=== PATIENT | male | born 1955 | race Caucasian/White ===

== ENCOUNTER 2016-11-14 07:18 | Day surgery (SDC) | payer OTHER ==
[~2016-11-14 07:18] MED LIST: LACTATED RINGERS 1,000 ML IV ONE
[2016-11-14] MEDS ORDERED: fentaNYL 100 MCG/2 ML VIAL IVP ONE (08:25)
[2016-11-14] MEDS ORDERED: MIDAZOLAM 2 MG/2 ML VIAL IVP ONE (08:25)
[2016-11-14 09:13] VITALS: BP 118/69
== END 2016-11-14 07:19 | disposition home or self-care (01) ==
LOC: SDS 07:18
PROVIDERS: ATTEND Internal Medicine
PROC: 0DJD8ZZ Inspection of Lower Intestinal Tract, Via Natural or Artificial Opening Endoscopic (ICD-10-PCS; principal; 2016-11-14 08:30)
DX: Z12.11 Encounter for screening for malignant neoplasm of colon (principal); K57.30 Diverticulosis of large intestine without perforation or abscess without bleeding; K64.0 First degree hemorrhoids
CPT/HCPCS: 45378; J7120

== ENCOUNTER 2016-12-09 01:38 | Day surgery (SDC) | payer OTHER ==
--- NOTE | 2016-12-09 01:46 | ED Physician Documentation ---
PD HPI ABD PAIN - Stated complaint Stated Complaint: ABD PX - History obtained from History obtained from: Patient - History of Present Illness Timing - onset: Yesterday Timing - duration: Hours (12) Timing - details: Gradual onset Pain level now: 4 Quality: Pain Location: RLQ Radiation: No: Chest, , Lower back, Left flank, Left shoulder, Right flank, Right shoulder, Upper back Improved by: Laying still Worsened by: Moving, Palpation Associated symptoms: No: Fever, Nausea, Vomiting, Diarrhea, Constipation Similar symptoms before: Has not had sx before Recently seen: Not recently seen Review of Systems Constitutional: denies: Fever, Chills, Sweats Eyes: reports: Reviewed and negative Ears: reports: Reviewed and negative Nose: reports: Reviewed and negative Throat: reports: Reviewed and negative Cardiac: reports: Reviewed and negative Respiratory: reports: Reviewed and negative GI: reports: Abdominal Pain. denies: Nausea, Vomiting : denies: Dysuria, Frequency Skin: reports: Reviewed and negative Musculoskeletal: reports: Reviewed and negative Neurologic: reports: Reviewed and negative PD PAST MEDICAL HISTORY - Past Medical History Cardiovascular: None Respiratory: None Endocrine/Autoimmune: HyPOthyroidism GI: GERD : None HEENT: None Psych: None Musculoskeletal: None Derm: None - Past Surgical History Past Surgical History: Yes Ortho: Other - Present Medications Home Medications: Ambulatory Orders Medication Instructions Recorded Confirmed Levothyroxine [Synthroid] 1 tab DAILY 11/09/16 12/09/16 Omeprazole [PriLOSEC] 20 mg PO DAILY 11/09/16 12/09/16 - Allergies Allergies/Adverse Reactions: Allergies Allergy/AdvReac Type Severity Reaction Status Date / Time metoclopramide HCl * AdvReac Severe Unknown Verified 12/09/16 01:55 [From Reglan] ondansetron HCl * AdvReac Severe Unknown Verified 12/09/16 01:55 [From Zofran (as hydrochloride)] prochlorperazine AdvReac Severe Unknown Verified 12/09/16 01:55 [From Compazine] prochlorperazine edisylate * AdvReac Severe Unknown Verified 12/09/16 01:55 [From Compazine] prochlorperazine maleate * AdvReac Severe Unknown Verified 12/09/16 01:55 [From Compazine] - Living Situation Living Arrangement: reports: At home PD ED PE NORMAL - Vitals Vital signs reviewed: Yes - General General: Alert and oriented X 3, No acute distress, Well developed/nourished - HEENT HEENT: Moist mucous membranes - Neck Neck: Supple, no meningeal sign - Cardiac Cardiac: RRR, No murmur - Respiratory Respiratory: No respiratory distress, Clear bilaterally - Abdomen Abdomen: Soft, Non distended - Back Back: No CVA TTP - Derm Derm: Normal color, Warm and dry, No rash - Extremities Extremities: No edema PD ED PE EXPANDED - Abdomen Abdomen: Tender to palpation, Rebound, RLQ Results - Vitals Vitals: Vital Signs - 24 hr 12/09/16 12/09/16 12/09/16 01:46 02:43 03:33 Temperature 36.8 C Heart Rate 109 H 91 87 Respiratory 16 14 14 Rate Blood Pressure 140/78 H 135/81 H 139/75 H O2 Saturation 97 93 96 12/09/16 05:02 Temperature Heart Rate 89 Respiratory 14 Rate Blood Pressure 114/60 O2 Saturation 97 Oxygen O2 Source Room air - Labs Labs: Laboratory Tests 12/09/16 12/09/16 02:10 02:10 WBC 12.2 H RBC 4.64 L Hgb 14.8 Hct 41.8 L MCV 90.1 MCH 32.0 H MCHC 35.6 RDW 11.9 L Plt Count 215 MPV 7.1 L Neut # 9.4 H Lymph # 1.7 [place] # 0.9 Eos # 0.2 Baso # 0.1 Absolute Nucleated RBC 0.00 Nucleated RBCs 0.0 Sodium 138 Potassium 3.6 Chloride 104 Carbon Dioxide 25 Anion Gap 9.0 BUN 14 Creatinine 1.1 Estimated GFR (MDRD) 69 L Glucose 138 H Calcium 8.7 Total Bilirubin 0.8 AST 21 ALT 24 Alkaline Phosphatase 59 Total Protein 7.1 Albumin 4.1 Globulin 3.0 Albumin/Globulin Ratio 1.4 Lipase 23 PD MEDICAL DECISION MAKING - ED course Complexity details: reviewed results, re-evaluated patient, considered differential, d/w patient ED course: CT scan broken. Dr. Shaffer came to ED, evaluated patient, and will admit to perform appendectomy in AM Departure - Departure Disposition: ED Place in Observation Clinical Impression: Appendicitis Qualifiers: Appendicitis type: acute appendicitis Acute appendicitis type: unspecified acute appendicitis type Qualified Code(s): K35.80 - Unspecified acute appendicitis Condition: Stable Discharge Date/Time: 12/09/16 06:40
[2016-12-09] MEDS ORDERED: MORPHINE 2 MG/ML SYRINGE IVP STA ×2 (02:03→03:20)
[2016-12-09] MEDS ORDERED: SODIUM CHLORIDE 0.9% 1,000 ML IV STA (02:03)
[2016-12-09] MEDS ORDERED: MORPHINE 2 MG/ML SYRINGE ONE ×2 (02:09→03:24)
[2016-12-09 02:13] LABS: BASOPHILS # (AUTO) 0.1 10^3/uL (0.0-0.1); BASOPHILS % (AUTO) 0.8 %; EOSINOPHILS # (AUTO) 0.2 10^3/uL (0.0-0.7); EOSINOPHILS % (AUTO) 1.6 %; HCT - HEMATOCRIT 41.8 % (42.0-52.0); HGB - HEMOGLOBIN 14.8 g/dL (14.0-18.0); LYMPHOCYTES # (AUTO) 1.7 10^3/uL (1.5-3.5); LYMPHOCYTES % (AUTO) 13.5 %; MEAN CORPUSCULAR HGB CONC 35.6 g/dL (32.0-36.0); MEAN CORPUSCULAR VOLUME 90.1 fL (80.0-94.0); MEAN PLATELET VOLUME 7.1 fL (7.4-11.4); MONOCYTES # (AUTO) 0.9 10^3/uL (0.0-1.0); MONOCYTES % (AUTO) 7.5 %; NEUTROPHILS # (AUTO) 9.4 10^3/uL (1.5-6.6); NEUTROPHILS % (AUTO) 76.6 %; RED BLOOD COUNT 4.64 10^6/uL (4.70-6.10); RED CELL DISTRIBUTION WIDTH 11.9 % (12.0-15.0); UNCORRECTED WHITE BLOOD COUNT 12.2 x10^3/uL; WHITE BLOOD COUNT 12.2 x10^3/uL (4.8-10.8)
[2016-12-09 02:24] LABS: ALBUMIN/GLOBULIN RATIO 1.4 (1.0-2.2); BILIRUBIN,TOTAL 0.8 mg/dL (0.2-1.0); CALCIUM 8.7 mg/dL (8.5-10.3); CREATININE 1.1 mg/dL (0.6-1.2); POTASSIUM 3.6 mmol/L (3.5-5.0); TOTAL PROTEIN 7.1 g/dL (6.7-8.2)
[2016-12-09] MEDS ORDERED: SODIUM CHLORIDE 0.9% 1,000 ML IV ONE (03:24)
[2016-12-09] MEDS ORDERED: SODIUM CHLORIDE FLUSH 0.9% 10 ML SYRINGE IVP ONE (03:24)
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
[2016-12-09] MEDS ORDERED: ERTAPENEM 1 GM VIAL ONE (04:41)
[2016-12-09 05:03] VITALS: BP 114/60
[2016-12-09] MEDS ORDERED: SCOPOLAMINE PATCH TOP ONE (06:18)
[2016-12-09] MEDS ORDERED: SCOPOLAMINE PATCH TOP STA (06:27)
[2016-12-09] MEDS ORDERED: LACTATED RINGERS 1,000 ML IV ONE ×2 (06:35→07:12)
[2016-12-09] MEDS ORDERED: NEOSTIGMINE 1 MG/1 ML 10 ML MDV IVP ONE (07:10)
[2016-12-09] MEDS ORDERED: GLYCOPYRROLATE 1 MG/5 ML VIAL IVP ONE (07:10)
[2016-12-09] MEDS ORDERED: ROCURONIUM 50 MG/5 ML VIAL IVP ONE (07:10)
[2016-12-09] MEDS ORDERED: LIDOCAINE-MPF 2% 5 ML VIAL IM ONE (07:10)
[2016-12-09] MEDS ORDERED: fentaNYL 100 MCG/2 ML VIAL IVP ONE (07:10)
[2016-12-09] MEDS ORDERED: MIDAZOLAM 2 MG/2 ML VIAL IVP ONE (07:10)
[2016-12-09] MEDS ORDERED: SUCCINYLCHOLINE 200 MG/10 ML VIAL IVP ONE (07:10)
[2016-12-09] MEDS ORDERED: PROPOFOL 200 MG/20 ML VIAL IVP ONE (07:10)
[2016-12-09] MEDS ORDERED: DEXAMETHASONE 4 MG/ML VIAL IVP ONE (07:10)
[2016-12-09] MEDS ORDERED: BUPIVACAINE 0.25%-EPI 1:200000 PF 10 ML VIAL SUBQ ONE (07:48)
--- NOTE | 2016-12-09 08:11 | OPERATIVE REPORT ---
Operative Report - General Planned Procedure: laparoscopic appendectomy Pre-Op Diagnosis: Acute appendicitis Post Op Diagnosis: Acute appendicitis - retrocecal - Procedure Note Primary Surgeon: Giselle Le MD Anesthesia Provider: Dr. Armijo/Mingo Quezada Anesthesia Technique: General ET tube Estimated Blood Loss (in cc): 20 Complications: none - Other Other Information/Narrative: Procedure: Lap Appy After informed consent was obtained, the pt was taken to the OR and GETA was induced. A benavides cath was placed and a time out was done. The abdomen was then prepped and draped in sterile fashion. 0.25% Marcaine with epi was injected in the skin and subQ tissues at the umbilicus and an umbilical incision was made and carried down to the fascia with blunt dissection. The fascia was grasped between 2 Coleen clamps and incised with a scalpel. A 0 vicryl suture was placed on either side of the fascia. The peritoneal cavity was entered and the Torres trocar inserted and secured with the balloon and sutures. The abdomen was insufflatted and the pt was placed in Trendelenburg position and rotated toward the surgeon. 5mm RLQ and 5mm LLQ trocars were placed under direct visualization after injecting local. The appendix was noted to be retrocecal and adhered to the lateral abdominal wall. It was acutely inflamed, but not perforated. dissected free with blunt dissection and the ligasure. The mesoappendix was dissected with the ligasure. The appendix was then transected at it's base with the endoGIA stapler taking a small rim of cecum. The appendix was placed in the endoCatch bag and removed from the abdomen via the umbilical trocar site. The staple line was visualized and was intact with no active bleeding or leakage. The RLQ was then copiously irrigated with saline. The RLQ and pelvis was suctioned out and the trocars removed under direct visualization. The fascia at the umbilical trocar site was closed with a [id number] 0 Vicryl suture. The skin at all the trocar sites was closed with a running 4-0 Monocryl suture. Dermabond was applied. All counts were correct at the end of the procedure. There were no immediate postop complications. The pt tolerated the procedure well and was sent to the PACU in stable condition.
[2016-12-09] MEDS ORDERED: KETOROLAC 15 MG/ML VIAL ONE (08:12)
[2016-12-09] MEDS ORDERED: oxyCOD/ACETAMIN 5 MG/325 MG TABLET PO ONE (11:40)
== END 2016-12-09 06:03 | disposition home or self-care (01) ==
LOC: ED 01:38 → SDS 06:02
PROVIDERS: ATTEND Surgery
PROC: 0DTJ4ZZ Resection of Appendix, Percutaneous Endoscopic Approach (ICD-10-PCS; principal; 2016-12-09 06:00)
DX: K35.80 Unspecified acute appendicitis (principal); K21.9 Gastro-esophageal reflux disease without esophagitis; E03.9 Hypothyroidism, unspecified
CPT/HCPCS: 36415; 44970; 80053; 83690; 85025; 96361; 96374; 96376; 99284; 99285; A9270; J1335; J3490; J7120; 88304

== ENCOUNTER 2018-04-29 17:19 | Emergency (ER) | payer MEDICAID, OTHER ==
[2018-04-29] MEDS ORDERED: IOVERSOL 320 100 ML VIAL IVP ONE ×2 (17:20→19:21)
--- NOTE | 2018-04-29 17:48 | ED Physician Documentation ---
PD HPI ABD PAIN - Stated complaint Stated Complaint: ABD PAIN - Chief complaint Chief Complaint: Abd Pain - History obtained from History obtained from: Patient - History of Present Illness Timing - onset: How many days ago (2) Timing - duration: Days (2) Pain level max: 2 Pain level now: 0 Quality: Aching Location: LLQ Improved by: Other (nothing) Worsened by: Other (nothing) Associated symptoms: Constipation, Loss of appetite, Weight loss. No: Fever, Nausea, Vomiting, Diarrhea, Dysuria, Chest pain, Dizzy, Testicular pain Similar symptoms before: Has not had sx before Recently seen: Not recently seen - Additional information Additional information: 62-year-old male with history of Diverticulosis, thyroid disease and elevated A1c but not diagnosed as diabetes, appendectomy here with complaint of fever and chills the past 2 days feeling like it is a flu bug. Now states that he is having some kind of abdominal peritoneal pain since last night. Patient stated he also has not had any BM the past 4 days. In the past week decrease in appetite so he has lost 10 pounds.Denies any trauma, travel or sick contacts. Review of Systems Ten Systems: 10 systems reviewed and negative Constitutional: reports: Fever, Chills Nose: denies: Congestion Throat: denies: Sore throat Cardiac: denies: Chest pain / pressure Respiratory: denies: Dyspnea, Cough GI: reports: Abdominal Pain, Constipation. denies: Abdominal Swelling, Nausea, Vomiting, Diarrhea, Bloody / black stool : denies: Dysuria Musculoskeletal: denies: Back pain Neurologic: denies: Generalized weakness PD PAST MEDICAL HISTORY - Past Medical History Cardiovascular: None Respiratory: None Endocrine/Autoimmune: HyPOthyroidism GI: GERD : None HEENT: None Psych: None Musculoskeletal: None Derm: None - Past Surgical History Past Surgical History: Yes Ortho: Other - Present Medications Home Medications: Ambulatory Orders Medication Instructions Recorded Confirmed Levothyroxine [Synthroid] 120 mcg DAILY 11/09/16 12/09/16 Levofloxacin [Levaquin] 500 mg PO DAILY #6 tablet 04/29/18 Metronidazole [Flagyl] 500 mg PO TID #20 tablet 04/29/18 - Allergies Allergies/Adverse Reactions: Allergies Allergy/AdvReac Type Severity Reaction Status Date / Time metoclopramide HCl * AdvReac Severe Unknown Verified 04/29/18 17:31 [From Reglan] ondansetron HCl * AdvReac Severe Unknown Verified 04/29/18 17:31 [From Zofran (as hydrochloride)] prochlorperazine AdvReac Severe Unknown Verified 04/29/18 17:31 [From Compazine] prochlorperazine edisylate * AdvReac Severe Unknown Verified 04/29/18 17:31 [From Compazine] prochlorperazine maleate * AdvReac Severe Unknown Verified 04/29/18 17:31 [From Compazine] - Social History Does the pt smoke?: No Smoking Status: Never smoker Does the pt drink ETOH?: No Does the pt have substance abuse?: No - Immunizations Immunizations are current?: Yes - POLST Patient has POLST: No PD ED PE NORMAL - Vitals Vital signs reviewed: Yes - General General: Alert and oriented X 3, No acute distress, Well developed/nourished - HEENT HEENT: EOMI, Moist mucous membranes, Pharynx benign - Neck Neck: Supple, no meningeal sign - Cardiac Cardiac: RRR, No murmur - Respiratory Respiratory: No respiratory distress, Clear bilaterally - Abdomen Abdomen: Normal bowel sounds, Soft, Non distended, Other (Left lower quadrant mild tenderness to palpation. No rigidity. No rebound nor guarding.) - Back Back: No CVA TTP, No spinal TTP - Derm Derm: Normal color, Warm and dry - Extremities Extremities: No deformity - Neuro Neuro: Alert and oriented X 3 - Psych Psych: Normal mood, Normal affect Results - Vitals Vitals: Vital Signs - 24 hr 04/29/18 17:24 Temperature 36.4 C L Heart Rate 86 Respiratory 16 Rate Blood Pressure 123/76 O2 Saturation 98 Oxygen O2 Source Room air - Labs Labs: Laboratory Tests 04/29/18 04/29/18 04/29/18 18:30 18:30 19:00 WBC 5.7 RBC 4.22 L Hgb 13.4 L Hct 39.6 L MCV 93.8 MCH 31.8 H MCHC 33.9 RDW 11.9 L Plt Count 214 MPV 7.7 Neut # (Auto) 3.8 Lymph # (Auto) 1.2 L [place] # (Auto) 0.5 Eos # (Auto) 0.2 Baso # (Auto) 0.1 Absolute Nucleated RBC 0.00 Nucleated RBC % 0.0 Sodium 142 Potassium 4.2 Chloride 105 Carbon Dioxide 29 Anion Gap 8.0 BUN 18 Creatinine 1.0 Estimated GFR (MDRD) 76 L Glucose 155 H Calcium 8.5 Total Bilirubin 0.6 AST 15 ALT 16 Alkaline Phosphatase 43 Total Protein 7.1 Albumin 3.6 Globulin 3.5 Albumin/Globulin Ratio 1.0 Lipase 38 Urine Color YELLOW Urine Clarity CLEAR Urine pH 6.5 Ur Specific [place] 1.020 Urine Protein NEGATIVE Urine Glucose (UA) NEGATIVE Urine Ketones NEGATIVE Urine Occult Blood NEGATIVE Urine Nitrite NEGATIVE Urine Bilirubin NEGATIVE Urine Urobilinogen 1 (NORMAL) Ur Leukocyte Esterase NEGATIVE Ur Microscopic Review NOT INDICATED Urine Culture Comments NOT INDICATED PD MEDICAL DECISION MAKING - ED course Complexity details: reviewed results, re-evaluated patient, considered differential (Diverticulosis, diverticulitis, perforation, bowel obstruction, constipation, UTI), d/w patient, d/w family ED course: 1905 patient wanted to talk to me prior to getting the CAT scan result. He was wondering if ultrasound will be a better test and CAT scan due to radiation. Explained to the patient that ultrasound will not flower picker diverticulitis, perforation or abdominal abscess. Patient agreed to CT scan. 2026 patient in bed in no acute distress. Inform of test results. Agreed to oral Flagyl and Levaquin for his sigmoid diverticulitis. States does not need anything for pain or nausea. Diet discussed. Departure - Departure Disposition: 01 Home, Self Care Clinical Impression: Diverticulitis of gastrointestinal tract Condition: Stable Instructions: ED Diverticulitis Prescriptions: Levofloxacin [Levaquin] 500 mg PO DAILY #6 tablet Metronidazole [Flagyl] 500 mg PO TID #20 tablet Comments: Take antibiotic as prescribed. Clear liquids today. Tomorrow advance to bland diet. Avoid foods with seeds. Eaten small amounts but frequently. Follow-up with your primary doctor for reevaluation and referral to a GI doctor For near future colonoscopy. If worse return to the emergency room.
[2018-04-29] MEDS: SODIUM CHLORIDE 0.9% 1,000 ML IV ONE (18:20)
[2018-04-29 18:36] LABS: BASOPHILS # (AUTO) 0.1 10^3/uL (0.0-0.1); BASOPHILS % (AUTO) 1.1 %; EOSINOPHILS # (AUTO) 0.2 10^3/uL (0.0-0.7); EOSINOPHILS % (AUTO) 3.7 %; HGB - HEMOGLOBIN 13.4 g/dL (14.0-18.0); LYMPHOCYTES # (AUTO) 1.2 10^3/uL (1.5-3.5); LYMPHOCYTES % (AUTO) 20.8 %; MEAN CORPUSCULAR HEMOGLOBIN 31.8 pg (27.0-31.0); MEAN CORPUSCULAR HGB CONC 33.9 g/dL (32.0-36.0); MEAN CORPUSCULAR VOLUME 93.8 fL (80.0-94.0); MEAN PLATELET VOLUME 7.7 fL (7.4-11.4); MONOCYTES # (AUTO) 0.5 10^3/uL (0.0-1.0); MONOCYTES % (AUTO) 8.1 %; NEUTROPHILS # (AUTO) 3.8 10^3/uL (1.5-6.6); NEUTROPHILS % (AUTO) 66.3 %; PLT - PLATELET COUNT 214 10^3/uL (130-450); RED BLOOD COUNT 4.22 10^6/uL (4.70-6.10); RED CELL DISTRIBUTION WIDTH 11.9 % (12.0-15.0); WHITE BLOOD COUNT 5.7 x10^3/uL (4.8-10.8)
[2018-04-29 18:49] LABS: ALBUMIN 3.6 g/dL (3.2-5.5); BILIRUBIN,TOTAL 0.6 mg/dL (0.2-1.0); CALCIUM 8.5 mg/dL (8.5-10.3); TOTAL PROTEIN 7.1 g/dL (6.7-8.2)
[2018-04-29] MEDS: IOVERSOL 320 100 ML VIAL IVP ONE (19:42)
[2018-04-29 19:52] LABS: BILIRUBIN,URINE NEGATIVE (NEGATIVE); GLUCOSE, URINE (UA) NEGATIVE (NEGATIVE); KETONES,URINE (UA) NEGATIVE (NEGATIVE); LEUKOCYTE ESTERASE, URINE NEGATIVE (NEGATIVE); NITRITE,URINE NEGATIVE (NEGATIVE); OCCULT BLOOD,URINE NEGATIVE (NEGATIVE); PH,URINE 6.5 PH (5.0-7.5); PROTEIN,URINE NEGATIVE (NEGATIVE); UROBILINOGEN,URINE 1 (NORMAL) E.U./dL (NORMAL)
[2018-04-29 19:53] LABS: CLARITY,URINE CLEAR (CLEAR)
--- NOTE | 2018-04-29 19:59 | CT Report ---
Reason: LLQ pain, anorexia, Procedure Date: 04/29/2018 Accession Number: [id number] / [id number] Procedure: CT - Abdomen/Pelvis W/ CPT Code: FULL RESULT: EXAM: CT ABDOMEN AND PELVIS EXAM DATE: 04/29/2018 07:32 PM. CLINICAL HISTORY: LLQ pain, anorexia. COMPARISONS: None. TECHNIQUE: Routine helical CT imaging was performed through the abdomen and pelvis. IV contrast: 100 cc Optiray 320 IV. Enteric contrast: No. Reconstructions: Coronal and sagittal. In accordance with CT protocol optimization, one or more of the following dose reduction techniques were utilized for this exam: automated exposure control, adjustment of mA and/or KV based on patient size, or use of iterative reconstructive technique. FINDINGS: Lung Bases: Unremarkable. Liver: Normal. No masses. Gallbladder/Bile Ducts: Unremarkable. Spleen: Normal. Pancreas: Normal. Adrenal Glands: Normal. Kidneys: Normal. No masses or hydronephrosis. Peritoneal Cavity/Bowel: There is a focal inflammatory process in the central pelvis around the diverticula arising from the superior wall of the sigmoid colon. There is fat stranding of the mesentery. There is no drainable or organized abscess. No mechanical bowel obstruction. There is increased colonic stool volume. Appendix not visualized. Pelvic Organs: Urinary bladder appears unremarkable. Vasculature: No aneurysms or other significant abnormality. Bones: No significant abnormality. Other: None. IMPRESSION: 1. Acute diverticulitis of the sigmoid colon. 2. Increased colonic stool volume. No mechanical obstruction. 3. No abscess. RADIA
[2018-04-29] MEDS: levoFLOXacin 250 MG TABLET PO STA (20:51)
[2018-04-29] MEDS: metroNIDAZOLE 250 MG TABLET PO STA (20:51)
[2018-04-29 20:55] VITALS: BP 129/86
== END 2018-04-29 21:15 | disposition home or self-care (01) ==
LOC: ED 17:19
DX: K57.32 Diverticulitis of large intestine without perforation or abscess without bleeding (principal); K21.9 Gastro-esophageal reflux disease without esophagitis; E03.9 Hypothyroidism, unspecified
CPT/HCPCS: 36415; 74177; 80053; 81003; 83690; 85025; 96360; 99283; 99284; A9270; Q9967; 81001; 87086

== ENCOUNTER 2018-05-19 08:00 | Outpatient (CLI) | payer MEDICAID, OTHER ==
[2018-05-19 12:51] LABS: BASOPHILS # (AUTO) 0.1 10^3/uL (0.0-0.1); BASOPHILS % (AUTO) 1.4 %; EOSINOPHILS # (AUTO) 0.3 10^3/uL (0.0-0.7); HGB - HEMOGLOBIN 14.9 g/dL (14.0-18.0); LYMPHOCYTES # (AUTO) 1.2 10^3/uL (1.5-3.5); LYMPHOCYTES % (AUTO) 24.1 %; MEAN CORPUSCULAR HEMOGLOBIN 32.1 pg (27.0-31.0); MEAN CORPUSCULAR HGB CONC 34.3 g/dL (32.0-36.0); MEAN CORPUSCULAR VOLUME 93.6 fL (80.0-94.0); MONOCYTES # (AUTO) 0.3 10^3/uL (0.0-1.0); MONOCYTES % (AUTO) 6.5 %; NEUTROPHILS # (AUTO) 3.2 10^3/uL (1.5-6.6); PLT - PLATELET COUNT 241 10^3/uL (130-450); RED BLOOD COUNT 4.65 10^6/uL (4.70-6.10); RED CELL DISTRIBUTION WIDTH 12.1 % (12.0-15.0)
[2018-05-19 14:10] LABS: HB2 TOTAL 15.2 g/dL; HEMOGLOBIN A1C 0.61 g/dL; HEMOGLOBIN A1C % 5.8 % (4.6-6.2)
[2018-05-19 14:24] LABS: THYROID STIMULATING HORMONE 2.8 uIU/mL (0.34-5.60)
[2018-05-19 14:32] LABS: FERRITIN 655.4 ng/mL (23.9-336.2)
[2018-05-19 14:33] LABS: % IRON SATURATION 69 % (20-50); ALBUMIN 4.4 g/dL (3.2-5.5); ALBUMIN/GLOBULIN RATIO 1.5 (1.0-2.2); ALKALINE PHOSPHATASE 50 IU/L (42-121); ALT ALANINE AMINOTRANSFERASE 32 IU/L (10-60); AST ASPARTATE AMINOTRANSFERASE 26 IU/L (10-42); BILIRUBIN,TOTAL 0.9 mg/dL (0.2-1.0); BUN - BLOOD UREA NITROGEN 17 mg/dL (6-20); CALCIUM 8.9 mg/dL (8.5-10.3); CARBON DIOXIDE - CO2 25 mmol/L (21-32); CHLORIDE 104 mmol/L (101-111); GFR - MDRD 76 (>89); GLUCOSE 125 mg/dL (70-100); IRON 177 ug/dL (45-182); SODIUM 136 mmol/L (135-145); TOTAL IRON BINDING CAPACITY 256 ug/dL (250-450); TOTAL PROTEIN 7.4 g/dL (6.7-8.2); TRANSFERRIN 183 mg/dL (180-329)
[2018-05-19 14:36] LABS: FOLATE 11.03 ng/mL (5.90 - >24.8)
== END 2018-05-19 23:59 | disposition home or self-care (01) ==
LOC: LAB.WCP 08:00
PROVIDERS: ATTEND Family Medicine
DX: E03.9 Hypothyroidism, unspecified (principal); K21.9 Gastro-esophageal reflux disease without esophagitis; R73.01 Impaired fasting glucose
CPT/HCPCS: 36415; 80053; 82607; 82728; 82746; 83036; 83540; 84443; 84466; 85025

== ENCOUNTER 2019-11-11 17:28 | Outpatient (CLI) | payer OTHER ==
[2019-11-11 17:51] LABS: CALCIUM 8.9 mg/dL (8.5-10.3); CREATININE 1.3 mg/dL (0.6-1.2)
[2019-11-11 18:00] LABS: HB2 TOTAL 16.1 g/dL; HEMOGLOBIN A1C 1.12 g/dL; HEMOGLOBIN A1C % 8.5 % (4.6-6.2)
== END 2019-11-11 17:29 | disposition home or self-care (01) ==
LOC: LAB 17:28
PROVIDERS: ATTEND Nurse Practitioner
DX: R73.01 Impaired fasting glucose (principal); E03.9 Hypothyroidism, unspecified
CPT/HCPCS: 36415; 80048; 83036; 84443

== ENCOUNTER 2020-04-18 18:23 | Outpatient (CLI) | payer OTHER | END 2020-04-18 18:24 | disposition home or self-care (01) | LOC: COV 18:23 | PROVIDERS: ATTEND Family Medicine | DX: R05 Cough (principal); M79.10 Myalgia, unspecified site; R53.83 Other fatigue; R68.83 Chills (without fever); J02.9 Acute pharyngitis, unspecified; R09.81 Nasal congestion; Z20.828 Contact with and (suspected) exposure to other viral communicable diseases ==

== ENCOUNTER 2020-07-05 14:43 | Outpatient (CLI) | payer OTHER ==
[2020-07-05] MEDS ORDERED: GADOBUTROL 10 MMOL/10 ML VIAL ONE (15:13)
[2020-07-05] MEDS ORDERED: GADOBUTROL 10 MMOL/10 ML VIAL IVP ONE (16:02)
--- NOTE | 2020-07-05 16:50 | MRI Report ---
PROCEDURE: IACS W/WO INDICATIONS: SENSORINEURAL HEARING LOSS CONTRAST: IV CONTRAST: Gadavist ml: 8 TECHNIQUE: Noncontrast sagittal T1 spin echo, axial FLAIR, axial gradient echo, axial diffusion and ADC through the brain. Axial thin-slice 3D CISS, coronal balanced GE, axial T1 spin echo with fat saturation thr ough the internal auditory canals. After the administration of contrast, thin slice axial and cruz l T1 spin echo with fat saturation through the internal auditory canals, and axial T1 spin echo with fat saturation through the brain. COMPARISON: None. FINDINGS: Image quality: Excellent. Cerebellopontine angles: No cerebellopontine angle masses. Inner ear structures appear normally for med. No suspicious enhancement in the internal auditory canal or along the course of the 7th cranial nerve. CSF spaces: Ventricles are normal in size and shape. No extra-axial fluid collections. Basal ciste rns are patent. Brain: Mild global cerebral volume loss and chronic microvascular ischemic change. No intracranial b shay or mass effects. Oliver-white matter interface is intact. No abnormal intracranial enhancement. Diffusion weighted images demonstrate no acute ischemic insults. Brainstem appears normal. Normal intravascular flow voids are present. Skull and face: Calvarial marrow signal is normal. Orbits appear normal. Sinuses: Sinuses and mastoids are clear. IMPRESSION: No findings to explain hearing loss or tinnitus. Specifically, no mass in the CP angle or internal au ditory canals. No significant structural or signal abnormality of the inner ear structures demonstrat ed. Mild global cerebral volume loss and chronic microvascular ischemic changes. Reviewed by: Markus Burger MD on 07/05/2020 4:49 PM PST Approved by: Markus Burger MD on 07/05/2020 4:49 PM PST Station ID: [id number]
== END 2020-07-05 14:44 | disposition home or self-care (01) ==
LOC: DI 14:43
PROVIDERS: ATTEND Otolaryngology
DX: H93.13 Tinnitus, bilateral (principal)
CPT/HCPCS: 70543; A9585

== ENCOUNTER 2021-03-28 08:00 | Outpatient (CLI) | payer OTHER ==
[2021-03-28 18:35] LABS: THYROID STIMULATING HORMONE 9.35 uIU/mL (0.34-5.60)
[2021-03-28 18:37] LABS: % IRON SATURATION 46 % (20-50); ALBUMIN 4.6 g/dL (3.2-5.5); ALBUMIN/GLOBULIN RATIO 1.6 (1.0-2.2); ALKALINE PHOSPHATASE 67 IU/L (42-121); ALT ALANINE AMINOTRANSFERASE 21 IU/L (10-60); AST ASPARTATE AMINOTRANSFERASE 17 IU/L (10-42); BILIRUBIN,TOTAL 0.7 mg/dL (0.2-1.0); BUN - BLOOD UREA NITROGEN 24 mg/dL (6-20); CALCIUM 9.7 mg/dL (8.5-10.3); CARBON DIOXIDE - CO2 29 mmol/L (21-32); CHLORIDE 98 mmol/L (101-111); CHOL/HDL RATIO 4.3 (<5.0); CHOLESTEROL 200 mg/dL; GFR - MDRD 75 (>89); GLUCOSE 330 mg/dL (70-100); HDL CHOLESTEROL 47 mg/dL; IRON 155 ug/dL (45-182); LDL CHOLESTEROL,CALCULATED 110 mg/dL; LDL/HDL RATIO 2.3 (<3.6); POTASSIUM 4.9 mmol/L (3.5-5.0); SODIUM 135 mmol/L (135-145); TOTAL IRON BINDING CAPACITY 340 ug/dL (250-450); TOTAL PROTEIN 7.4 g/dL (6.7-8.2); TRANSFERRIN 243 mg/dL (180-329); TRIGLYCERIDES 215 mg/dL; VLDL CHOLESTEROL 43 mg/dL
[2021-03-28 18:41] LABS: FERRITIN 301.9 ng/mL (23.9-336.2)
[2021-03-28 19:04] LABS: FREE T4 (FREE THYROXINE) 0.84 ng/dL (0.58-1.64)
[2021-03-28 20:04] LABS: ESTIMATED AVERAGE GLUCOSE 223 mg/dL (70-100); HEMOGLOBIN A1c% 9.4 % (4.27-6.07)
[2021-03-28 21:34] LABS: BASOPHILS # (AUTO) 0.1 10^3/uL (0.0-0.1); EOSINOPHILS # (AUTO) 0.2 10^3/uL (0.0-0.7); EOSINOPHILS % (AUTO) 3.1 %; HCT - HEMATOCRIT 47.9 % (42.0-52.0); LYMPHOCYTES # (AUTO) 0.9 10^3/uL (1.5-3.5); LYMPHOCYTES % (AUTO) 19.1 %; MEAN CORPUSCULAR HEMOGLOBIN 31.8 pg (27.0-31.0); MEAN CORPUSCULAR HGB CONC 33.4 g/dL (32.0-36.0); MEAN CORPUSCULAR VOLUME 95.2 fL (80.0-94.0); MEAN PLATELET VOLUME 9.9 fL (7.4-11.4); MONOCYTES # (AUTO) 0.3 10^3/uL (0.0-1.0); NEUTROPHILS # (AUTO) 3.4 10^3/uL (1.5-6.6); NEUTROPHILS % (AUTO) 69.4 %; PLT - PLATELET COUNT 257 10^3/uL (130-450); RED BLOOD COUNT 5.03 10^6/uL (4.70-6.10); RED CELL DISTRIBUTION WIDTH 11.9 % (12.0-15.0); WHITE BLOOD COUNT 4.9 x10^3/uL (4.8-10.8)
== END 2021-03-28 23:59 | disposition home or self-care (01) ==
LOC: LAB.WCP 08:00
PROVIDERS: ATTEND Family Medicine
DX: E11.9 Type 2 diabetes mellitus without complications (principal); E83.119 Hemochromatosis, unspecified; Z12.5 Encounter for screening for malignant neoplasm of prostate; E03.9 Hypothyroidism, unspecified
CPT/HCPCS: 36415; 80053; 80061; 82728; 83036; 83540; 83721; 84153; 84439; 84443; 84466; 85025

== ENCOUNTER 2022-03-14 09:15 | Outpatient (CLI) | payer OTHER ==
[2022-03-14 09:33] LABS: BASOPHILS # (AUTO) 0.1 10^3/uL (0.0-0.1); BASOPHILS % (AUTO) 1.6 %; EOSINOPHILS # (AUTO) 0.2 10^3/uL (0.0-0.7); EOSINOPHILS % (AUTO) 3.7 %; HCT - HEMATOCRIT 44.4 % (42.0-52.0); HGB - HEMOGLOBIN 15.7 g/dL (14.0-18.0); LYMPHOCYTES # (AUTO) 1.4 10^3/uL (1.5-3.5); LYMPHOCYTES % (AUTO) 23.9 %; MEAN CORPUSCULAR HEMOGLOBIN 31.5 pg (27.0-31.0); MEAN CORPUSCULAR HGB CONC 35.4 g/dL (32.0-36.0); MEAN CORPUSCULAR VOLUME 89.2 fL (80.0-94.0); MEAN PLATELET VOLUME 8.7 fL (7.4-11.4); MONOCYTES # (AUTO) 0.4 10^3/uL (0.0-1.0); MONOCYTES % (AUTO) 7.6 %; NEUTROPHILS # (AUTO) 3.5 10^3/uL (1.5-6.6); NEUTROPHILS % (AUTO) 62.7 %; PLT - PLATELET COUNT 254 10^3/uL (130-450); RED BLOOD COUNT 4.98 10^6/uL (4.70-6.10); RED CELL DISTRIBUTION WIDTH 10.6 % (12.0-15.0); WHITE BLOOD COUNT 5.7 x10^3/uL (4.8-10.8)
[2022-03-14 09:49] LABS: ALBUMIN 4.4 g/dL (3.2-5.5); ALBUMIN/GLOBULIN RATIO 1.4 (1.0-2.2); ALKALINE PHOSPHATASE 69 IU/L (42-121); ALT ALANINE AMINOTRANSFERASE 23 IU/L (10-60); AST ASPARTATE AMINOTRANSFERASE 19 IU/L (10-42); BILIRUBIN,TOTAL 0.9 mg/dL (0.2-1.0); BUN - BLOOD UREA NITROGEN 13 mg/dL (6-20); CALCIUM 9.3 mg/dL (8.5-10.3); CARBON DIOXIDE - CO2 29 mmol/L (21-32); CHLORIDE 100 mmol/L (101-111); CHOL/HDL RATIO 4.2 (<5.0); CHOLESTEROL 174 mg/dL; CREATININE 1.1 mg/dL (0.6-1.2); GFR - MDRD 67 (>89); GLUCOSE 204 mg/dL (70-100); HDL CHOLESTEROL 41 mg/dL; LDL CHOLESTEROL,CALCULATED 113 mg/dL; LDL/HDL RATIO 2.8 (<3.6); POTASSIUM 4.4 mmol/L (3.5-5.0); SODIUM 137 mmol/L (135-145); TOTAL PROTEIN 7.6 g/dL (6.7-8.2); TRIGLYCERIDES 99 mg/dL; VLDL CHOLESTEROL 20 mg/dL
[2022-03-14 09:59] LABS: THYROID STIMULATING HORMONE 3.64 uIU/mL (0.34-5.60)
[2022-03-14 10:02] LABS: FREE T4 (FREE THYROXINE) 0.89 ng/dL (0.58-1.64)
[2022-03-14 11:44] LABS: ESTIMATED AVERAGE GLUCOSE 154 mg/dL (70-100)
== END 2022-03-14 09:16 | disposition home or self-care (01) ==
LOC: LAB 09:15
PROVIDERS: ATTEND Physician Assistant
DX: E11.9 Type 2 diabetes mellitus without complications (principal); Z13.220 Encounter for screening for lipoid disorders; Z12.5 Encounter for screening for malignant neoplasm of prostate; E03.9 Hypothyroidism, unspecified; E83.119 Hemochromatosis, unspecified
CPT/HCPCS: 36415; 80053; 80061; 83036; 83721; 84153; 84439; 84443; 85025

== ENCOUNTER 2022-10-13 04:44 | Emergency (ER) | payer MEDICARE, OTHER ==
[2022-10-13 04:57] VITALS: BP 142/89
[2022-10-13] MEDS ORDERED: PROPARACAINE 0.5% OPHTH DROPS 15 ML RIGHTEYE STA (05:14)
[2022-10-13] MEDS ORDERED: PROPARACAINE 0.5% OPHTH DROPS 15 ML LEFTEYE STA (05:14)
--- NOTE | 2022-10-13 06:16 | ED Physician Documentation ---
PD HPI OPHTHO - Stated complaint Stated Complaint: EYE PROBLEMS - Chief complaint Chief Complaint: Heent - History obtained from History obtained from: Patient - Additional information Additional information: HPI from patient. Patient says he woke from sleep at approximately 3 AM this morning. He says he woke at this time because he usually wakes up around 3 AM (did not wake up due to any symptoms). Upon turning on the light, he had sudden onset of severe left eye pain and then noted left eye blurry vision. He denies h/o similar symptoms. He notes minor, episodic left eye redness over past week. He wears glasses (both for near vision and other glasses for distance) but not contact lenses. Denies fever, MCDANIELS, numbness, weakness. By the time of this H+P, his pain has nearly resolved although blurred vision of left eye persists. Review of Systems Eyes: reports: Decreased vision, Photophobia. denies: Loss of vision, Discharge PD PAST MEDICAL HISTORY - Past Medical History Past Medical History: Yes Cardiovascular: None Respiratory: None Endocrine/Autoimmune: HyPOthyroidism GI: GERD : None HEENT: None Psych: None Musculoskeletal: None Derm: None - Past Surgical History Past Surgical History: Yes General: Appendectomy Ortho: Other - Present Medications Home Medications: Ambulatory Orders Medication Instructions Recorded Confirmed Levothyroxine [Synthroid] 1 tab PO QDAC 07/09/18 03/21/22 Lycopene. 1 tab ORAL DAILY 07/09/18 03/21/22 Saw Fordyce 160 mg PO DAILY 07/09/18 03/21/22 metFORMIN [Glucophage] 250 mg PO BID 01/17/22 03/21/22 - Allergies Allergies/Adverse Reactions: Allergies Allergy/AdvReac Type Severity Reaction Status Date / Time metoclopramide HCl * AdvReac Severe Unknown Verified 06/29/20 16:31 [From Reglan] ondansetron HCl * AdvReac Severe Unknown Verified 06/29/20 16:31 [From Zofran (as hydrochloride)] prochlorperazine AdvReac Severe Unknown Verified 06/29/20 16:31 [From Compazine] prochlorperazine edisylate * AdvReac Severe Unknown Verified 06/29/20 16:31 [From Compazine] prochlorperazine maleate * AdvReac Severe Unknown Verified 06/29/20 16:31 [From Compazine] - Social History Does the pt smoke?: No Smoking Status: Never smoker Does the pt drink ETOH?: No Does the pt have substance abuse?: No - Immunizations Immunizations are current?: Yes Immunizations: TDAP >10years/unknown - POLST Patient has POLST: No PD ED PE NORMAL - Vitals Vital signs reviewed: Yes - General General: Alert and oriented X 3, No acute distress, Well developed/nourished - HEENT HEENT: Moist mucous membranes PD ED PE EXPANDED - HEENT HEENT: PERRL, EOMI - Eyes Eyes: Normal eyelids, Injected conj/sclera (left eye conjunctiva is uniformly injected), Anterior chambers clear, Normal fundi (unremarkable left fundoscopic exam). No: Exudate Results - Vitals Vitals: Oxygen O2 Source Room air PD Medical Decision Making - ED course Complexity details: considered differential, d/w patient ED course: denies injury, denies surface eye pain. Patient is a retired ED physician and says his symptoms do not feel c/w corneal abrasion or other such surface-related discomfort. No cells/flare on anterior chamber exam of left eye (using slit lamp). No abnormalities seen on fundoscopic exam. His pain had nearly resolved by the time of this H+P and did not recur/worsen during ED stay. Left eye conjunctival injection was marked on presentation but improved without intervention during ED stay. IOP measured with i-Care tonometer is WNL (IOP 9, average of six measurements). Etiology of symptoms is not apparent at this time. He is provided polytrim eye drops for possible conjunctivitis. Return precautions are reviewed, advised to follow up with ophthalmology Departure - Departure Disposition: 01 Home, Self Care Clinical Impression: Redness of eye Condition: Good Instructions: Red Eye Causes Follow-Up: Ed Guardado MD [Provider Admit Priv/Credential] - Comments: I did not see any cells in the anterior chamber ("flare"); this would make uveitis unlikely. I did not see any abnormality on retinal exam. Your intraoccular pressures were normal (several readings resulted in average of 9). The cause of your signs/symptoms is not apparent at this time. It seems unlikely that the signs and symptoms are caused by conjunctivitis, but, as we discussed, you have been provided with antibiotic drops to help cover this possibility. Use the antibiotic drops as follows: 1 drop in the left eye 3 times per day for 1 week. Discharge Date/Time: 10/13/22 08:29
[2022-10-13] MEDS ORDERED: POLYMYXIN B/TRIMETH OPHTH DROPS LEFTEYE STA (08:05)
== END 2022-10-13 08:29 | disposition home or self-care (01) ==
LOC: ED 04:44
DX: H57.89 Other specified disorders of eye and adnexa (principal)
CPT/HCPCS: 99282; 99283; A9270; J3490

== ENCOUNTER 2022-12-25 08:15 | Outpatient (CLI) | payer MEDICARE ==
[2022-12-25 08:42] LABS: BASOPHILS # (AUTO) 0.1 10^3/uL (0.0-0.1); BASOPHILS % (AUTO) 1.4 %; EOSINOPHILS # (AUTO) 0.2 10^3/uL (0.0-0.7); EOSINOPHILS % (AUTO) 4.9 %; HCT - HEMATOCRIT 42.8 % (42.0-52.0); HGB - HEMOGLOBIN 15.3 g/dL (14.0-18.0); LYMPHOCYTES # (AUTO) 1.3 10^3/uL (1.5-3.5); LYMPHOCYTES % (AUTO) 26.4 %; MEAN CORPUSCULAR HEMOGLOBIN 31.8 pg (27.0-31.0); MEAN CORPUSCULAR HGB CONC 35.7 g/dL (32.0-36.0); MEAN PLATELET VOLUME 8.8 fL (7.4-11.4); MONOCYTES # (AUTO) 0.3 10^3/uL (0.0-1.0); MONOCYTES % (AUTO) 6.9 %; PLT - PLATELET COUNT 225 10^3/uL (130-450); RED BLOOD COUNT 4.81 10^6/uL (4.70-6.10); RED CELL DISTRIBUTION WIDTH 10.7 % (12.0-15.0); WHITE BLOOD COUNT 4.9 x10^3/uL (4.8-10.8)
[2022-12-25 08:53] LABS: MICROALBUM/CREATININE RATIO,UR 9.2 ug/mg (<30.0); MICROALBUMIN,URINE 0.7 mg/dL (0-300.0)
[2022-12-25 09:03] LABS: ALBUMIN 4.5 g/dL (3.2-5.5); ALBUMIN/GLOBULIN RATIO 1.6 (1.0-2.2); BILIRUBIN,TOTAL 0.7 mg/dL (0.2-1.0); CALCIUM 9.1 mg/dL (8.5-10.3); CREATININE 0.9 mg/dL (0.6-1.2); POTASSIUM 4.9 mmol/L (3.5-5.0); TOTAL PROTEIN 7.4 g/dL (6.7-8.2)
[2022-12-25 11:21] LABS: ESTIMATED AVERAGE GLUCOSE 214 mg/dL (70-100); HEMOGLOBIN A1c% 9.1 % (4.27-6.07)
== END 2022-12-25 08:16 | disposition home or self-care (01) ==
LOC: LAB 08:15
PROVIDERS: ATTEND Physician Assistant
DX: E11.9 Type 2 diabetes mellitus without complications (principal); R63.4 Abnormal weight loss; R68.82 Decreased libido
CPT/HCPCS: 36415; 80053; 82043; 82570; 83036; 84403; 85025

== ENCOUNTER 2023-04-26 08:59 | Outpatient (CLI) | payer MEDICARE ==
[2023-04-26 09:19] LABS: BASOPHILS # (AUTO) 0.1 10^3/uL (0.0-0.1); BASOPHILS % (AUTO) 1.1 %; EOSINOPHILS # (AUTO) 0.2 10^3/uL (0.0-0.7); EOSINOPHILS % (AUTO) 3.3 %; HCT - HEMATOCRIT 44.6 % (42.0-52.0); HGB - HEMOGLOBIN 15.5 g/dL (14.0-18.0); LYMPHOCYTES % (AUTO) 13.2 %; MEAN CORPUSCULAR HEMOGLOBIN 31.4 pg (27.0-31.0); MEAN CORPUSCULAR HGB CONC 34.8 g/dL (32.0-36.0); MEAN CORPUSCULAR VOLUME 90.3 fL (80.0-94.0); MEAN PLATELET VOLUME 8.8 fL (7.4-11.4); MONOCYTES # (AUTO) 0.6 10^3/uL (0.0-1.0); MONOCYTES % (AUTO) 7.9 %; NEUTROPHILS # (AUTO) 5.3 10^3/uL (1.5-6.6); NEUTROPHILS % (AUTO) 74.2 %; PLT - PLATELET COUNT 242 10^3/uL (130-450); RED BLOOD COUNT 4.94 10^6/uL (4.70-6.10); RED CELL DISTRIBUTION WIDTH 10.7 % (12.0-15.0); WHITE BLOOD COUNT 7.2 x10^3/uL (4.8-10.8)
[2023-04-26 09:38] LABS: % IRON SATURATION 25 % (20-50); ALBUMIN 4.9 g/dL (3.2-5.5); ALBUMIN/GLOBULIN RATIO 1.9 (1.0-2.2); ALKALINE PHOSPHATASE 56 IU/L (42-121); ALT ALANINE AMINOTRANSFERASE 15 IU/L (10-60); AST ASPARTATE AMINOTRANSFERASE 13 IU/L (10-42); BILIRUBIN,TOTAL 0.8 mg/dL (0.2-1.0); BUN - BLOOD UREA NITROGEN 15 mg/dL (6-20); CALCIUM 9.4 mg/dL (8.5-10.3); CARBON DIOXIDE - CO2 29 mmol/L (21-32); CHLORIDE 102 mmol/L (101-111); CHOL/HDL RATIO 2.4 (<5.0); CHOLESTEROL 113 mg/dL; CREATININE 1.1 mg/dL (0.6-1.3); GFR - MDRD 67 (>89); GLUCOSE 212 mg/dL (74-104); HDL CHOLESTEROL 47 mg/dL; IRON 88 ug/dL (50-212); LDL CHOLESTEROL,CALCULATED 40 mg/dL; LDL/HDL RATIO 0.9 (<3.6); POTASSIUM 4.1 mmol/L (3.5-4.5); SODIUM 138 mmol/L (135-145); TOTAL IRON BINDING CAPACITY 347 ug/dL (250-450); TOTAL PROTEIN 7.5 g/dL (6.4-8.9); TRANSFERRIN 248 mg/dL (203-362); TRIGLYCERIDES 131 mg/dL (48-352); VLDL CHOLESTEROL 26 mg/dL
[2023-04-26 09:50] LABS: THYROID STIMULATING HORMONE 1.32 uIU/mL (0.34-5.60)
[2023-04-26 09:56] LABS: FERRITIN 224.3 ng/mL (23.9-336.2)
[2023-04-26 11:32] LABS: ESTIMATED AVERAGE GLUCOSE 157 mg/dL (70-100); HEMOGLOBIN A1c% 7.1 % (4.27-6.07)
== END 2023-04-26 09:00 | disposition home or self-care (01) ==
LOC: LAB 08:59
PROVIDERS: ATTEND Physician Assistant
DX: E11.9 Type 2 diabetes mellitus without complications (principal); E83.119 Hemochromatosis, unspecified; Z12.5 Encounter for screening for malignant neoplasm of prostate; E03.9 Hypothyroidism, unspecified
CPT/HCPCS: 36415; 80053; 80061; 82728; 83036; 83540; 84439; 84443; 84466; 85025; G0103; 83721; 84153

== ENCOUNTER 2024-03-05 10:01 | Outpatient (CLI) | payer MEDICARE ==
[2024-03-05 10:18] LABS: BASOPHILS # (AUTO) 0.1 10^3/uL (0.0-0.1); BASOPHILS % (AUTO) 1.2 %; EOSINOPHILS # (AUTO) 0.2 10^3/uL (0.0-0.7); EOSINOPHILS % (AUTO) 3.3 %; HCT - HEMATOCRIT 46.2 % (42.0-52.0); HGB - HEMOGLOBIN 16.2 g/dL (14.0-18.0); LYMPHOCYTES # (AUTO) 1.3 10^3/uL (1.5-3.5); LYMPHOCYTES % (AUTO) 19.6 %; MEAN CORPUSCULAR HEMOGLOBIN 31.6 pg (27.0-31.0); MEAN CORPUSCULAR HGB CONC 35.1 g/dL (32.0-36.0); MEAN CORPUSCULAR VOLUME 90.1 fL (80.0-94.0); MEAN PLATELET VOLUME 8.8 fL (7.4-11.4); MONOCYTES # (AUTO) 0.4 10^3/uL (0.0-1.0); MONOCYTES % (AUTO) 5.6 %; NEUTROPHILS # (AUTO) 4.7 10^3/uL (1.5-6.6); PLT - PLATELET COUNT 264 10^3/uL (130-450); RED BLOOD COUNT 5.13 10^6/uL (4.70-6.10); RED CELL DISTRIBUTION WIDTH 10.8 % (12.0-15.0); WHITE BLOOD COUNT 6.7 x10^3/uL (4.8-10.8)
[2024-03-05 10:29] LABS: CALCIUM 9.7 mg/dL (8.5-10.3); POTASSIUM 4.5 mmol/L (3.5-4.5)
[2024-03-05 10:30] LABS: ESTIMATED AVERAGE GLUCOSE 169 mg/dL (70-100); HEMOGLOBIN A1c% 7.5 % (4.27-6.07)
[2024-03-05 10:41] LABS: THYROID STIMULATING HORMONE 3.71 uIU/mL (0.34-5.60)
== END 2024-03-05 10:02 | disposition home or self-care (01) ==
LOC: LAB 10:01
PROVIDERS: ATTEND Physician Assistant
DX: E11.9 Type 2 diabetes mellitus without complications (principal); E03.9 Hypothyroidism, unspecified
CPT/HCPCS: 36415; 80048; 83036; 84439; 84443; 85025